=== PATIENT | female | born 1990 | race Caucasian/White ===

== ENCOUNTER 2016-12-27 03:40 | Inpatient (IN) | payer BC ==
[~2016-12-27] VITALS: Ht 170.2 cm; Wt 81.2 kg
[2016-12-27] VITALS (16 sets, daily range): BP systolic 106–133; BP diastolic 60–119; PULSE 72–207; RESP 18–20; TEMP 98–98.8
[~2016-12-27 03:40] MED LIST: IBUP600 PO; OXYC1SOL5 PO; PREN0.01 PO
[2016-12-27] MEDS ORDERED: LACTATED RINGER'S 1000 ML INJ 1,000 ML IV SCH (03:58)
[2016-12-27] MEDS ORDERED: LACTATED RINGER'S 1000 ML INJ 1,000 ML IV PRN (03:58)
[2016-12-27] MEDS ORDERED: SODIUM CHLORID 0.9% 500 ML INJ 500 ML IV PRN (04:00)
[2016-12-27] MEDS ORDERED: LIDOCAINE HCL 1% 50 ML VIAL I-DERMAL PRN (04:00)
[2016-12-27] MEDS ORDERED: OXYTOCIN 30 UNITS-500ML PREMIX 500 ML IV ONE (04:00)
[2016-12-27] MEDS ORDERED: ONDANSETRON HCL 4 MG/2 ML VIAL IV PRN (04:00)
[2016-12-27] MEDS ORDERED: MINERAL OIL 10 ML VIAL TOPICAL PRN (04:00)
[2016-12-27] MEDS ORDERED: LIDOCAINE HCL 1% 50 ML VIAL INFIL PRN (04:00)
[2016-12-27] MEDS ORDERED: CITRIC ACID-SODIUM CITRATE LIQ 30 ML UDC PO SCH (04:00)
[2016-12-27 04:16] LABS: AUTOMATED NEUTROPHIL # 5.5 TH/MM3 (1.8-7.7); BASOPHIL % 0.4 % (0.0-2.0); EOSINOPHIL # 0.1 TH/MM3 (0-0.4); EOSINOPHIL % 1.1 % (0.0-4.0); HEMATOCRIT 30.8 % (35.0-46.0); HEMO FLAGS DIFF FINAL; LYMPH % 39.1 % (9.0-44.0); LYMPHOCYTE # 4.1 TH/MM3 (1.0-4.8); MEAN CELL VOLUME 77.4 FL (80.0-100.0); MEAN CORPUSCULAR HEMOGLOBIN 25.9 PG (27.0-34.0); MEAN CORPUSCULAR HGB CONC 33.5 % (32.0-36.0); MONO % 7.2 % (0.0-8.0); NEUT % 52.2 % (16.0-70.0); PLATELET COUNT 259 TH/MM3 (150-450); RED BLOOD COUNT 3.98 MIL/MM3 (4.00-5.30); RED CELL DISTRIBUTION WIDTH 15.2 % (11.6-17.2); WHITE BLOOD COUNT 10.5 TH/MM3 (4.0-11.0)
[2016-12-27] MEDS ORDERED: SODIUM CHLOR 0.9% 1000 ML INJ 1,000 ML IV PRN (04:18)
--- NOTE | 2016-12-27 04:22 | HHI.HP ---
HPI Chief Complaint Contractions Date Seen: Dec 27, 2016 Time Seen: 04:00 Travel History International Travel<30 Days: No Contact w/Intl Traveler<30Days: No Known Affected Area: No History of Present Illness HPI 26-year-old 13 at 37 weeks and 4 days of gestation, EDC 01/13/17, patient presents to labor and delivery with complaints of frequent contractions , she denies leakage of fluids, vaginal bleeding and decreased movements. care is with Dr. Clay course is significant for history of delivery 2 and twin . Examination shows cervix is 8 cm dilated 100% effaced at -1 station bulging membrane, patient is albert irregularly. Para: 2 : 4 Miscarriage: 1 : 0 History Past Medical History Narrative Medical Migraine headaches Obstetric History Obstetric History delivery at 35 weeks in 2002, delivery at 36 weeks in 2014 ( twin ), spontaneous 1 2015 Past Surgical History Narrative Surgical status post tonsillectomy Family History Narrative Family History Denies Family History: Negative Social History Alcohol Use: No Tobacco Use: No Substance Abuse: No Allergies-Medications (Allergen,Severity, Reaction): Coded Allergies: Imitrex (Unverified Allergy, Severe, 12/24/14) Shellfish (Unverified Allergy, Severe, 12/24/14) Home Meds Active Scripts Oxycodone W/ Acetaminophen (Oxycodone/Acetaminophen 5-325 mg/5Ml)1 Tab Tab2 Tab PO Q4H PRN (PAIN SCALE 5 TO 10) #20 TAB Ref 0 Prov:Sidra Posada MD 12/26/14 Ibuprofen (Motrin 600 Mg Tab)600 Mg [id number] Mg PO Q6H PRN ( CRAMPING) # 30 TAB Ref 0 Prov:Vanesa Ramos CNM SKIP LOCATOR 12/26/14 Reported Medications Vitamins 1 Tab PO DAILY 12/24/14 Review of Systems Except as stated in HPI: all other systems reviewed are Neg Genitourinary: Other (contractions) Physical Exam Narrative GENERAL: Well-nourished, well-developed patient. SKIN: Warm and dry. HEAD: Normocephalic and atraumatic. EYES: No scleral icterus. No injection or drainage. ENT: No nasal drainage noted. Mucous membranes pink. Airway patent. NECK: Supple, trachea midline. No JVD. CARDIOVASCULAR: Regular rate and rhythm without murmurs, gallops, or rubs. RESPIRATORY: Breath sounds equal bilaterally. No accessory muscle use. BREASTS: Bilateral exam showed no masses , no retractions, no nipple discharge. ABDOMEN/GI: Abdomen soft, gravid, non-tender, bowel sounds present, no rebound, no guarding Gravid to 38 weeks size Fundal Height: 38 centimeters GENITOURINARY: External Genitalia: intact and normal in appearance BUS glands: Normal Cervix: 8 cm, 100% efface, -1 station, bulging membrane Dilatation: 8 cm Effacement: 100% efface Station: -1 Presentation: Cephalic Membranes: Intact, bulging membrane Uterine Contractions: Irregular FHT's: Category: one Baseline: 140s Reactive: Yes Variability: Moderate Decels: None EXTREMITIES: No cyanosis or edema. BACK: Nontender without obvious deformity. No CVA tenderness. NEUROLOGICAL: Awake and alert. Motor and sensory grossly within normal limits. Five out of 5 muscle strength in all muscle groups. Normal speech. Data Data Vital Signs Reviewed: Yes Orders Admit To Inpatient (12/27/16 ) Code Status (12/27/16 03:58) Vital Signs (Adult) .Per protocol (12/27/16 03:58) Activity Oob Ad Letty (12/27/16 03:58) ^ Heart (12/27/16 03:58) ^ Amnioinfusion (12/27/16 03:58) Urinary Catheter Management .ONCE (12/27/16 03:58) Diet Npo (12/27/16 Breakfast) Lactated Ringer's 1000 Ml Inj (Lr 1000 M (12/27/16 03:58) Lactated Ringer's 1000 Ml Inj (Lr 1000 M (12/27/16 03:58) Sodium Chlorid 0.9% 500 Ml Inj (Ns 500 M (12/27/16 04:00) Sodium Chlor 0.9% 1000 Ml Inj (Ns 1000 M (12/27/16 04:18) Lidocaine 1% Inj (50 Ml) (Xylocaine 1% I (12/27/16 04:00) Citric Acid-Sodium Citrate Liq (Bicitra (12/27/16 04:00) Ondansetron Inj (Zofran Inj) (12/27/16 04:00) Fentanyl Inj (Fentanyl Inj) (12/27/16 04:00) Fentanyl Inj (Fentanyl Inj) (12/27/16 04:00) Complete Blood Count With Diff (12/27/16 03:58) Hold Clot (12/27/16 03:58) Abo/Rh Blood Type (12/27/16 03:58) Urinalysis - C+S If Indicated (12/27/16 03:58) Type And Screen (12/27/16 03:58) Resp Oxygen Non Rebreathe Mask (12/27/16 ) ^ Epidural / Intrathecal Infus (12/27/16 03:58) Oxytocin 30 Units-500ml Premix (Pitocin (12/27/16 04:00) Lidocaine 1% Inj (50 Ml) (Xylocaine 1% I (12/27/16 04:00) Light Mineral Oil (Muri-Lube Oil) (12/27/16 04:00) Inpatient Certification (12/27/16 ) Specimen To Be Collected PRN (12/27/16 03:58) Assessment/Plan Problem List: (1) 37 weeks gestation of (2) Normal labor Assessment and Plan Term at 37 weeks and 4 days of gestation in active labor, reassuring heart status, GBS is negative. 1. Term at 37 weeks and 4 days of gestation in active labor * Admit patient to labor and delivery * Continuous heart tracing * Keep patient nothing by mouth * IV hydration * Patient may have IV pain medications or epidural for pain management * Monitor progress of labor * Anticipate vaginal delivery * Send admission blood work * Dr. Posada is notified. Discharge Planning We will discharge patient to home in 2-3 days after delivery Chano Slade MD Dec 27, 2016 04:22
--- NOTE | 2016-12-27 04:29 | PD.OB.DELI ---
Anesthesia: None Episiotomy: None Vaginal Delivery: Normal Presentation: Occiput anterior Nuchal Cord: x1 : Single One Minute : 8 Five Minute : 9 Weight: 7 Care: Suctioned Placenta: Spontaneous delivery, Intact, 3 vessel cord Laceration: 1 deg Repair: Chromic interrupted (delayed cord clamping) Sidra Posada MD Dec 27, 2016 04:28
[2016-12-27] MEDS ORDERED: SODIUM CHLORIDE 0.9% FLUSH 5 ML FLUSH IV PRN (04:30)
[2016-12-27] MEDS ORDERED: ZOLPIDEM TARTRATE 5 MG TAB PO PRN (04:30)
[2016-12-27] MEDS ORDERED: ACETAMINOPHEN 325 MG TAB PO PRN (04:30)
[2016-12-27] MEDS ORDERED: ONDANSETRON ODT 4 MG TAB PO PRN (04:30)
[2016-12-27] MEDS ORDERED: ALUMINUM/MAGNESIUM/SIMETH 30 ML CUP PO PRN (04:30)
[2016-12-27] MEDS ORDERED: DOCUSATE SODIUM 50 MG/SENNA 8.6 MG TAB PO PRN (04:30)
[2016-12-27] MEDS ORDERED: WITCH HAZEL 50%/GLYCERIN 12.5% 40 PAD JAR TOPICAL PRN (04:30)
[2016-12-27] MEDS ORDERED: BENZOCAINE 20% TOPICAL SPRAY 60 ML CAN TOPICAL PRN (04:30)
[2016-12-27] MEDS: IBUPROFEN 600 MG TAB PO PRN ×3 (08:20→21:03)
[2016-12-27] MEDS ORDERED: SODIUM CHLORIDE 0.9% FLUSH 5 ML FLUSH IV SCH (09:00)
[2016-12-27] MEDS ORDERED: SENN1TAB PO (12:28)
[2016-12-27] MEDS ORDERED: IBUP-232 PO (12:28)
--- NOTE | 2016-12-27 12:31 | HHI.OB ---
Subjective Post Day: 0 Remarks s/p FT at approx 4am today Objective Vitals/I&O Vital Signs Date Time Temp Pulse Resp B/P Pulse Ox O2 Delivery O2 Flow Rate FiO2 12/27/16 08:33 98.0 80 20 106/68 12/27/16 06:35 98.8 12/27/16 06:35 79 18 121/61 12/27/16 06:01 77 114/69 12/27/16 05:45 85 124/72 12/27/16 05:35 18 12/27/16 05:30 82 121/65 12/27/16 05:15 72 117/75 12/27/16 05:05 18 12/27/16 05:01 80 113/60 12/27/16 04:59 18 12/27/16 04:50 98.3 18 12/27/16 04:45 82 118/79 12/27/16 04:31 102 119/92 12/27/16 04:31 77 116/72 12/27/16 04:26 207 133/119 12/27/16 04:20 18 Objective Remarks GENERAL: Well-nourished, well-developed patient. CARDIOVASCULAR: Regular rate and rhythm without murmurs, gallops, or rubs. RESPIRATORY: Breath sounds equal bilaterally. No accessory muscle use. ABDOMEN/GI: Abdomen soft, non-tender. Fundus: Firm, non-tender at umbilicus. GENITOURINARY: Light to moderate bleeding. EXTREMITIES: No cyanosis or edema, non-tender, without signs of DVT. Medications and IVs Current Medications Medications (Trade) Dose Ordered Sig/Alex Route Start Time Stop Time Status Last Admin (NS Flush) 2 ml BID IV 12/27/16 09:00 (NS Flush) 2 ml UNSCH PRN IV 12/27/16 04:30 (Tylenol) 650 mg Q4H PRN PO 12/27/16 04:30 (Motrin) 600 mg Q6H PRN PO 12/27/16 04:30 12/27/16 08:20 (Americaine 20% Top Spr) 1 spray Q4H PRN TOPICAL 12/27/16 04:30 (Tucks Pads) 1 applic QID PRN TOPICAL 12/27/16 04:30 (Niya-Colace) 2 tab Q12H PRN PO 12/27/16 04:30 (Ambien) 5 mg HS PRN PO 12/27/16 04:30 (M-M-R Ii Inj) 0.5 ml ONCE ONCE SQ 12/27/16 16:00 12/27/16 16:01 (Boostrix Inj) 0.5 ml ONCE ONCE IM 12/27/16 16:00 12/27/16 16:01 (Mag-Al Plus Susp Liq) 15 ml Q8H PRN PO 12/27/16 04:30 (Zofran Odt) 4 mg Q6H PRN PO 12/27/16 04:30 Assessment/Plan Problem List: (1) 37 weeks gestation of (2) Normal labor Assessment and Plan PPD#0, delivered around 4am today - doing well, continue supportive care, support - routine d/c planning - infant NOT for circ Discharge Planning routine Estefany Chino MD Dec 27, 2016 12:31
[2016-12-27] MEDS ORDERED: MEASLES, MUMPS, RUBELLA VACCINE 0.5 ML VIAL SQ ONE (16:00)
[2016-12-27] MEDS ORDERED: DIPHTH/TETANUS/ACEL PERTUSSIS (BOOSTER) 0.5 ML VIAL/PFS IM ONE (16:00)
[2016-12-28] MEDS: IBUPROFEN 600 MG TAB PO PRN ×2 (02:52→09:38)
--- NOTE | 2016-12-28 07:17 | HHI.OB ---
Subjective Post Day: 1 Remarks Baby born early Tuesday morning. Ready for discharge Nursing well circ will be in peds office no complaints Objective Vitals/I&O Vital Signs Date Time Temp Pulse Resp B/P Pulse Ox O2 Delivery O2 Flow Rate FiO2 12/28/16 03:52 18 12/27/16 19:58 98.4 81 18 106/66 12/27/16 08:33 98.0 80 20 106/68 Objective Remarks GENERAL: Well-nourished, well-developed patient. CARDIOVASCULAR: Regular rate and rhythm without murmurs, gallops, or rubs. RESPIRATORY: Breath sounds equal bilaterally. No accessory muscle use. ABDOMEN/GI: Abdomen soft, non-tender. Fundus: Firm, non-tender at umbilicus. GENITOURINARY: Light to moderate bleeding. EXTREMITIES: No cyanosis or edema, non-tender, without signs of DVT. Medications and IVs Current Medications Medications (Trade) Dose Ordered Sig/Alex Route Start Time Stop Time Status Last Admin (NS Flush) 2 ml BID IV 12/27/16 09:00 (NS Flush) 2 ml UNSCH PRN IV 12/27/16 04:30 (Tylenol) 650 mg Q4H PRN PO 12/27/16 04:30 (Motrin) 600 mg Q6H PRN PO 12/27/16 04:30 12/28/16 02:52 (Americaine 20% Top Spr) 1 spray Q4H PRN TOPICAL 12/27/16 04:30 12/27/16 14:23 (Tucks Pads) 1 applic QID PRN TOPICAL 12/27/16 04:30 12/27/16 14:23 (Niya-Colace) 2 tab Q12H PRN PO 12/27/16 04:30 (Ambien) 5 mg HS PRN PO 12/27/16 04:30 (Mag-Al Plus Susp Liq) 15 ml Q8H PRN PO 12/27/16 04:30 (Zofran Odt) 4 mg Q6H PRN PO 12/27/16 04:30 Assessment/Plan Problem List: (1) 37 weeks gestation of (2) Normal labor Assessment and Plan PPD 1 discharge and return in 6 weeks Discharge Planning routine Sidra Posada MD Dec 28, 2016 07:17
--- NOTE | 2016-12-28 07:18 | HHI.DCPOC ---
Discharge Care Plan Report Symptoms to Your Doctor -Temperate above 100.5 degrees -Redness, of incision or excessive or foul smelling drainage -Unusual pain or calf pain -Increased vaginal bleeding -Painful or difficulty urinating -Feelings of extreme sadness or anxiety after 2 weeks Goals to Promote Your Health * To prevent worsening of your condition and complications * To maintain your health at the optimal level Directions to Meet Your Goals Take your medications as prescribed Follow your dietary instruction Follow activity as directed Ensure plenty of rest for recovery Drink fluids for hydration Keep your appointments as scheduled Take your immunizations and boosters as scheduled If your symptoms worsen call your PCP, if no PCP go to Urgent Care Center or Emergency Room Smoking is Dangerous to Your Health. Avoid second hand smoke Call the 24-hour crisis hotline for domestic abuse at Sidra Posada MD Dec 28, 2016 07:18
[2016-12-28 08:15] VITALS: BP 105/66; PULSE 72; RESP 16; TEMP 98.2
== END 2016-12-28 15:00 | disposition home or self-care (01) | DRG 775 ==
LOC: HOBED 03:40 → H2EA 03:57 → H2EB 04:05 → H1EA 06:21
PROVIDERS: ADMIT Obstetrics & Gynecology; ATTEND Obstetrics & Gynecology
PROC: 0HQ9XZZ Repair Perineum Skin, External Approach (ICD-10-PCS; principal; 2016-12-27)
PROC: 10E0XZZ Delivery of Products of Conception, External Approach (ICD-10-PCS; 2016-12-27)
DX: O70.0 First degree perineal laceration during delivery (principal); G43.909 Migraine, unspecified, not intractable, without status migrainosus; O69.81X0 Labor and delivery complicated by cord around neck, without compression, not applicable or unspecified; Z37.0 Single live birth; Z3A.37 37 weeks gestation of pregnancy
CPT/HCPCS: 59025; 85025; 99285

== ENCOUNTER → 2017-08-29 | Outpatient (CLI) | payer BC ==
[~2017-08-29] MED LIST changes: +IBUP-232 PO; -IBUP600 PO; -OXYC1SOL5 PO; +SE-NCHW CHEW; +SENN1TAB PO
== END ==
LOC: CPRE 11:32
PROVIDERS: ATTEND Obstetrics & Gynecology
DX: Z01.812 Encounter for preprocedural laboratory examination (principal)

== ENCOUNTER → 2017-08-31 | Day surgery (SDC) | payer BC ==
[~2017-08-31] VITALS: Ht 170.2 cm; Wt 69.2 kg
[~2017-08-31] MED LIST changes: +*diphenhydrAMINE HCL 50 MG/ML VIAL PERIprocedural Use ONLY ONE; +ACETAMINOPHEN 1000 MG/100 ML 100 ML IV ONE; +APREPITANT 40 MG CAP PO SCH; +BUPIVACAINE HCL PF 0.25% 30 ML VIAL ONE; +CHLORHEXIDINE GLUCONATE 2 % 1 PACK (2 CLOTHS) TOPICAL PRN; +DEXAMETHASONE SOD PHOS 4 MG/ML VIAL IV ONE; +DO NOT ADM ANY ANTICOAGULANT DRUGS PRN; +GLYCOPYRROLATE 1 MG/5 ML SYRINGE IV PUSH ONE; +HYDROmorphone HCL PF 1 MG/ML VIAL IVP PRN; -IBUP-232 PO; +IBUPROFEN 600 MG TAB PO PRN; +INSULIN HUMAN REGULAR 1,000 UNITS/10 ML VIAL SQ PRN; +KETOROLAC TROMETHAMINE 30 MG/ML (IVP) VIAL IVP PRN; +KETOROLAC TROMETHAMINE 60 MG/2 ML (IM) VIAL IM ONE; +LACTATED RINGER'S 1000 ML INJ 1,000 ML IV ONE; +LACTATED RINGER'S 1000 ML INJ 1,000 ML IV SCH; +LACTATED RINGER'S 1000 ML IV PRN; +LIDOCAINE HCL 1% PF 5 ML AMPULE OTHER ONE; +LORazepam 0.5 MG TAB PO PRN; +METOPROLOL TARTRATE 25 MG TAB PO PRN; +NEOSTIGMINE 3 MG/3 ML SYR IV ONE; +ONDANSETRON HCL 4 MG/2 ML VIAL IVP PRN; +PILL SPLITTER OTHER PRN; +POVIDONE IODINE 5% (ANTISEPSIS KIT) 4 APPLICATIONS EACH NARE PRN; -PREN0.01 PO; +PROMETHAZINE INJ 25 MG/ML VIAL IM PRN; +PROPOFOL 200 MG/20 ML AMP IV ONE; +ROCURONIUM INJ 50 MG/5 ML SYRINGE IV PUSH ONE; -SENN1TAB PO; +SODIUM CHLORID 0.9% 500 ML IV PRN; +SODIUM CHLORIDE 0.9% FLUSH 10 ML FLUSH IV FLUSH PRN; +SODIUM CHLORIDE 0.9% FLUSH 10 ML FLUSH IV FLUSH SCH; +ceFAZolin 2 GM PREMIX 50 ML IV SCH; +diphenhydrAMINE HCL 25 MG CAP PO PRN; +oxyCODONE/ACETAMINOPHEN 5 MG/325 MG TAB PO PRN
--- NOTE | 2017-08-31 10:40 | MP ---
cc: HERMES CLAY M.D. DATE OF SURGERY: 08/31/2017 PREOPERATIVE DIAGNOSIS Menorrhagia, dysmenorrhea, chronic pelvic pain. PROCEDURE Diagnostic hysteroscopy, diagnostic laparoscopy, endometrial sampling with NovaSure ablation, bilateral salpingectomy. POSTOPERATIVE DIAGNOSIS Menorrhagia, dysmenorrhea, chronic pelvic pain. SURGEON Obed. ANESTHESIA General endotracheal intubation. ESTIMATED BLOOD LOSS Minimal, less than 50 cc. DRAINS Post to gravity during the procedure only. OPERATIVE FINDINGS The patient had a boggy adenomatous appearing uterus that was enlarged measuring about 9 weeks. Fallopian tubes and ovaries appeared normal. She had a small peritoneal window over the left uterosacral ligament that was very subtle. There was no other evidence of peritoneal implants suggesting endometriosis. The appendix, upper quadrants and liver edge appeared normal. Surgical specimens included endometrial sampling. PROCEDURE DESCRIPTION The patient was taken to the operating room and under general anesthesia had an airway secured using an endotracheal tube. She was carefully positioned in dorsal lithotomy position using Edy stirrups on the lower extremities with sequentials placed for VTE prophylaxis. After she was prepped and draped a Post was inserted by sterile technique. A timeout was conducted and agreed by all present in the room. The patient did receive Ancef 2 grams prophylactically IV before the procedure. The patient was prepped and draped. Exam revealed a retroverted uterus that was soft. Pelvic support was good. There was no evidence of prolapse. Cervix was normal. A single-tooth tenaculum was used to secure the cervix and then the bivalve retractor was removed after placing a Hulka tenaculum on the cervix as well. Attention was directed to the abdomen where no evidence of scars or herniation or deformity was noted. 0.25% plain Marcaine was used to inject at all incision sites. A small incision was made within the umbilicus placing a 5 mm visible port trocar into the peritoneal cavity without complication and then insufflating at low pressure and allowing visualization of the pelvic anatomy. The patient was placed in Trendelenburg positioning and then accessory ports were placed using a suprapubic and a right lateral port, again using a 5 mm visible port trocar placed under direct vision without complication. Evaluation and manipulation of the patient's anatomy revealed the findings stated above. There was no significant evidence of endometriosis. Again the uterus was very soft and boggy suggesting adenomyosis. The fallopian tubes were excised using a Harmonic scalpel in a linear fashion, taking the proximal portion approximately 2 cm away from the cornua and then removing the fallopian tube completely to the ampullary end. Each fallopian tube was removed without complication. There was no evidence of bleeding or hematoma from the operative sites. At the completion of the salpingectomy the pneumoperitoneum was decompressed and the incision sites were closed with a subcuticular suture of 4-0 Monocryl with good result. Attention was directed to the cervix with the Hulka tenaculum was removed under direct vision. The 5 mm hysteroscope was used to examine the endometrial cavity which was symmetrical and polypoid on its surface. Otherwise no focal abnormality, no perforation. Curettage of the endometrium was obtained and sent in permanent solution. The NovaSure device was utilized. Measurements were set at 6.0 and 4.2. The cavity measured a wattage of 139 barrow. Electrodesiccation of the cavity was complete and then re-examination of the cavity after removal of the NovaSure device revealed good result with no deformity, perforation or active bleeding. At the completion of the case the patient was stable. Final count was correct. All instrumentation was removed. The Post was removed with sterile technique. She was extubated and taken to the recovery room on room air. Hermes Clay MD [facility]/BT /9:15 AM /10:21 AM
[2017-08-31 11:37] VITALS: BP 106/63; PULSE 68; RESP 18; TEMP 97.7; O2SAT 96
== END | disposition home or self-care (01) ==
LOC: HSDC 05:54
PROVIDERS: ATTEND Obstetrics & Gynecology
DX: N92.0 Excessive and frequent menstruation with regular cycle (principal); N94.6 Dysmenorrhea, unspecified; R10.2 Pelvic and perineal pain
CPT/HCPCS: 00840; 00952; 58563; 58661; 86077; 86850; 86870; 86900; 86901; 86920; 86922; 88302; 88305; J0131; J0690; J1100; J1200; J1885; J2710; J3010; J7120; J8501